=== PATIENT | male | born 1985 | race Two or more races ===

== ENCOUNTER 2021-06-18 23:51 | Emergency (ER) | payer OTHER ==
[~2021-06-18] VITALS: Ht 162.6 cm; Wt 75.0 kg
[2021-06-19 00:02] VITALS: BP 137/87
[2021-06-19] MEDS ORDERED: DIPHTH,PERTUSS(ACELL),TET TOX 0.5 ML DISP.SYRIN. VAX IM ONE (00:15)
[2021-06-19] MEDS ORDERED: CEPH500C PO (00:27)
--- NOTE | 2021-06-19 00:28 | PHYS DOC ---
Past Medical History Past Medical History: No Pertinent History Past Surgical History: No Surgical History Smoking Status: Never Smoker Alcohol Use: Occasionally General Adult EDM: Chief Complaint: PUNCTURE WOUND HPI: HPI: Patient is a 35 year old male who presents for tetanus vaccination status post stepping on a thumbtack with his bare foot. Patient reports the last time he had a tetanus vaccination was 13-14 years ago. He was not wearing shoes or sock s when he stepped on the thumbtack at home prior to arrival. He reports minimal pain, but is not requesting any medication at this time. Patient has no other injuries or complaints. Patient is new zealander speaking. Interview and exam were conducted in new zealander with good understanding and fluid communication. Review of Systems: Review of Systems: ROS negative or noncontributory except as mentioned in HPI. Heart Score: C/O Chest Pain: No Current Medications: Current Medications Medications (Trade) Dose Ordered Sig/Lorenzo Start Time Stop Time Status Last Admin Dose Admin Diphtheria/ Tetanus/Acell Pertussis (Boostrix) 0.5 ml ONCE ONCE 06/19/21 00:15 06/19/21 00:16 DC 06/19/21 00:20 0.5 ML Allergies: Allergies: Allergies Coded Allergies Type Severity Reaction Last Updated Verified No Known Drug Allergies 06/19/21 No Physical Exam: PE: Constitutional: Well developed, well nourished, no acute distress, non-toxic appearance. HENT: Normocephalic, atraumatic, bilateral external ears normal, nose normal. Eyes: EOMI, conjunctiva normal, no discharge. Neck: Normal range of motion, no stridor. Skin: Warm, dry, no erythema, no rash. See extremity exam for entry wound of thumbtack. Extremities: Ball of the right foot has some mild tenderness surrounding puncture wound. Extremities otherwise no tenderness, no cyanosis, no clubbing, ROM intact, no edema. Neurologic: Alert and oriented X 3, normal motor function, normal sensory function, no focal deficits noted. Current Patient Data: Vital Signs: Vital Signs Date Time Temp Pulse Resp B/P (MAP) Pulse Ox O2 Delivery O2 Flow Rate FiO2 06/19/21 00:02 98.7 73 16 137/87 (104) 99 Room Air 98.7 Course & Med Decision Making: Course & Med Decision Making Pertinent Labs and Imaging studies reviewed. (See chart for details) Dragon Disclaimer: Dragon Disclaimer: This electronic medical record was generated, in whole or in part, using a voice recognition dictation system. Departure Departure Impression: Primary Impression: Puncture wound of right foot excluding toes without complication Qualified Codes: S91.331A - Puncture wound without foreign body, right foot, initial encounter Disposition: HOME / SELF CARE / HOMELESS Condition: STABLE Patient Instructions: Puncture Wound, [id number] Additional Instructions: INSTRUCCIONES GENERALES DE EMA DEL DEPARTAMENTO DE EMERGENCIA Sebastian por venir hoy al Departamento de Emergencias (ED) de [facility] y confiarnos holt atencin. Confiamos en que haya tenido neyda experiencia positiva en nuestro Departamento de Emergencias. Si desea hablar con la gerencia del departamento, puede llamar al director al . FEROZ INSTRUCCIONES DE SEGUIMIENTO SON LAS SIGUIENTES: 1. Lou un seguimiento con holt mdico de atencin primaria. Si no tiene un mdico de cabecera, solicite neyda lista de recursos de mdicos o clnicas que puedan ayudarlo con la atencin de seguimiento. 2. El proveedor de emergencia guzman interpretado feroz estudios de imgenes, si se ordenaron. El especialista en imgenes de radiologa tambin los becki. Si hay un cambio en los hallazgos, se le notificar en 48 horas cuando sea posible. 3. Si se guzman realizado neyda prueba de laboratorio o un cultivo, se revisarn feroz resultados y se le notificar si necesita un cambio en el tratamiento. 4. Siga las instrucciones verbalizadas y consulte las copias impresas si es necesario. INSTRUCCIONES E INFORMACIN ADICIONALES: 1. Holt atencin hoy guzman sido supervisada por un mdico especialmente capacitado en atencin de emergencia. Muchos problemas requieren ms de neyda evaluacin para un diagnstico y tratamiento completos. Le recomendamos que programe holt cam de seguimiento segn lo recomendado para garantizar el tratamiento completo de holt enfermedad o lesin. Si no puede obtener atencin de seguimiento y contina teniendo un problema, o si holt condicin empeora, le recomendamos que regrese al servicio de urgencias. 2. No podemos determinar de manera santana holt condicin por telfono ni podemos jenni consejos mdicos slidos por telfono. Por estas razones de seguridad, si llama para pedir consejo mdico, le pediremos que vaya al servicio de urgencias para neyda evaluacin adicional. 3. Si tiene alguna pregunta sobre estas instrucciones de ema, llame al ED al . INFORMACIN DE SEGURIDAD: En inters de la seguridad, el bienestar y la prevencin de lesiones; le recomendamos que use holt cinturn de seguridad, si fuma; bastante fumador, y alentamos a la ashley a usar un christopher protector para andar en bicicleta y otros eventos deportivos que presenten un mayor riesgo de lesiones en la sherlyn. SI FEROZ SNTOMAS EMPEORAN O SE DESARROLLAN NUEVOS SNTOMAS, O SI TIENE PREOCUPACIONES SOBRE HOLT CONDICIN; O SI HOLT CONDICIN EMPEORA MIENTRAS ESPERA HOLT CAM DE SEGUIMIENTO; PNGASE EN CONTACTO CON HOLT MDICO DE ATENCIN PRIMARIA, EL MDICO CUYO NOMBRE Y NMERO LE DIERON, O REGRESE AL ED INMEDIATAMENTE. Scripts Cephalexin (KEFLEX) 500 Mg Capsule 1 CAP PO BID, #5 CAP Prov: PAOLA BELLA 06/19/21 PAOLA BELLA Jun 19, 2021 00:28
== END 2021-06-19 00:37 | disposition home or self-care (01) ==
LOC: ER 23:51
DX: S91.331A Puncture wound without foreign body, right foot, initial encounter (principal); W22.8XXA Striking against or struck by other objects, initial encounter; Y93.89 Activity, other specified; Y92.89 Other specified places as the place of occurrence of the external cause; Y99.8 Other external cause status
CPT/HCPCS: 90471; 90715; 99283-25